=== PATIENT | female | born 1935 | race Caucasian/White ===

== ENCOUNTER 2019-11-07 12:44 | Emergency (ER) | payer MEDICARE, BC ==
[2019-11-07] MEDS ORDERED: EPINEPHrine 1 MG/ML SDV SUBCUT ONE (12:49)
[2019-11-07] MEDS ORDERED: diphenhydrAMINE 50 MG/ML SDV IVPUSH ONE (13:23)
[2019-11-07] MEDS ORDERED: methylPREDNISolone Sodium Succinate 125 MG/2 ML SDV IVPUSH ONE (13:25)
[2019-11-07] MEDS ORDERED: Sodium Chloride 0.9% 1,000 ML IV ONE (13:32)
--- NOTE | 2019-11-07 14:53 | EDM.PDOC ---
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 on arrival she is alert and oriented with stable vitals. - Related Data Allergies Allergy/AdvReac Type Severity Reaction Status Date / Time alendronate sodium Allergy Other Verified 11/07/19 14:34 [From Fosamax] bee venom protein (honey bee) Allergy Anaphylactic Verified 11/07/19 14:34 Shock Sulfa (Sulfonamide Allergy Itching Verified 11/07/19 14:34 Antibiotics) ED ROS GENERAL - Review of Systems Review Of Systems: See Below Constitutional: Reports: No Symptoms HEENT: Reports: Other (erythema and flushing at face , neck and upper extremities. ) Respiratory: Reports: No Symptoms Cardiovascular: Reports: No Symptoms GI/Abdominal: Reports: No Symptoms Musculoskeletal: Reports: No Symptoms Skin: Reports: Rash, Erythema Neurological: Reports: No Symptoms Psychiatric: Reports: No Symptoms ED EXAM, GENERAL - Physical Exam Exam: See Below Exam Limited By: No Limitations General Appearance: Alert, No Apparent Distress, Anxious Eye Exam: Bilateral Eye: Normal Inspection Ears: Normal External Exam, Normal Canal Nose: Normal Inspection, Normal Mucosa Throat/Mouth: Normal Inspection, Normal Lips, Normal Oropharynx. No: Dysphagia Head: Atraumatic, Normocephalic, Other (erythema and flushing at face , neck and upper extremities. ) Neck: Supple, Non-Tender Respiratory/Chest: No Respiratory Distress, Lungs Clear, Normal Breath Sounds, No Accessory Muscle Use GI/Abdominal: Normal Bowel Sounds, Soft, Non-Tender Neurological: Alert, Oriented, CN II-XII Intact Psychiatric: Normal Affect Skin Exam: Other (erythema and flushing at face , neck and upper extremities. ) Course - Vital Signs Text/Narrative:: pt feels better after epi, solumedrol , Benadryl, and fluids, erythema has resolved from face , and there are few spots in arms, repeat exam shows clear lungs and clear oral airway, vitals are stable. pt is stable for discharge home with supportive mng , she may take OTC benadryl 50 mg every 6 hrs if needed. Departure - Departure Time of Disposition: 14:53 Disposition: Home, Self-Care 01 Clinical Impression: Allergic reaction to bee sting - Discharge Information Referrals: PCP,None [Primary Care Provider] -
== END 2019-11-07 15:50 | disposition home or self-care (01) ==
LOC: FB.ED 12:44
DX: T63.441A Toxic effect of venom of bees, accidental (unintentional), initial encounter (principal); Z88.8 Allergy status to other drugs, medicaments and biological substances; Z88.2 Allergy status to sulfonamides
CPT/HCPCS: 96361; 96372; 96374; 96375; 99282-25; J0171; J1200; J2930; J7030

== ENCOUNTER 2019-11-09 09:54 | Emergency (ER) | payer MEDICARE, BC ==
--- NOTE | 2019-11-09 10:37 | EDM.PDOC ---
ED HPI GENERAL MEDICAL PROBLEM - General Chief Complaint: Skin Complaint Stated Complaint: BEE STING Time Seen by Provider: 11/09/19 10:00 Source of Information: Reports: Patient History Limitations: Reports: No Limitations - History of Present Illness INITIAL COMMENTS - FREE TEXT/NARRATIVE: pt c/o swelling and redness at right forearm over the area where she was stung by a bee 2 days ago, tells me it was getting better yesterday but this morning she noted the redness and swelling spreading up toward her elbow , report some pain and itching , denies any fever chills or any other medical concerns. - Related Data Allergies Allergy/AdvReac Type Severity Reaction Status Date / Time alendronate sodium Allergy Other Verified 11/07/19 14:34 [From Fosamax] bee venom protein (honey bee) Allergy Anaphylactic Verified 11/07/19 14:34 Shock Sulfa (Sulfonamide Allergy Itching Verified 11/07/19 14:34 Antibiotics) Home Meds: Home Meds Amitriptyline [Elavil] 25 mg PO BEDTIME 11/09/19 [History] Aspirin [Halfprin] 81 mg PO DAILY 11/09/19 [History] Cholecalciferol (Vitamin D3) [Vitamin D3] 1,000 unit PO DAILY 11/09/19 [History] Digoxin [Digox] 125 mcg PO DAILY 11/09/19 [History] Escitalopram [Lexapro] 20 mg PO DAILY 11/09/19 [History] Furosemide 40 mg PO DAILY 11/09/19 [History] Levothyroxine [Synthroid] 50 mcg PO ACBREAKFAST 11/09/19 [History] Metoprolol Succinate [Toprol Xl] 100 mg PO DAILY 11/09/19 [History] Potassium Chloride [Klor-Con 10] 10 meq PO DAILY 11/09/19 [History] Warfarin [Coumadin] 1.25 mg PO DAILY 11/09/19 [History] Warfarin [Coumadin] 2.5 mg PO DAILY 11/09/19 [History] lisinopriL [Lisinopril] 10 mg PO DAILY 11/09/19 [History] Past Medical History Cardiovascular History: Reports: Afib, Hypertension Social & Family History - Tobacco Use Smoking Status *Q: Never Smoker ED ROS GENERAL - Review of Systems Review Of Systems: See Below Constitutional: Reports: No Symptoms HEENT: Reports: No Symptoms Respiratory: Reports: No Symptoms Cardiovascular: Reports: No Symptoms GI/Abdominal: Reports: No Symptoms : Reports: No Symptoms Musculoskeletal: Reports: No Symptoms ED EXAM, SKIN/RASH Exam: See Below Exam Limited By: No Limitations General Appearance: Alert, No Apparent Distress Respiratory/Chest: No Respiratory Distress, Lungs Clear, Normal Breath Sounds Cardiovascular: Normal Peripheral Pulses, Regular Rate, Rhythm, No Murmur GI/Abdominal: Normal Bowel Sounds, Soft, Non-Tender Extremities: Normal Inspection, Other (there is erythema warmth and swelling over the medial side of right forearm. ) Course - Vital Signs Text/Narrative:: pt has localized allergic reaction to bee sting with propable secondary infection/ cellulitis . Zithromax along with Benadryl were prescribed. Last Recorded V/S: Last Vital Signs Temp 36.6 C 11/09/19 09:54 Pulse 133 H 11/09/19 09:54 Resp 17 11/09/19 09:54 BP 148/91 H 11/09/19 09:54 Pulse Ox 100 11/09/19 09:54 Departure - Departure Time of Disposition: 10:37 Disposition: Home, Self-Care 01 Clinical Impression: Cellulitis - Discharge Information Referrals: Jaiden Ch MD [Primary Care Provider] - Sepsis Event Note (ED) - Evaluation Sepsis Screening Result: No Definite Risk - Focused Exam Vital Signs: Vital Signs Temp Pulse Resp BP Pulse Ox 11/09/19 09:54 36.6 C 133 H 17 148/91 H 100
== END 2019-11-09 11:06 | disposition home or self-care (01) ==
LOC: FB.ED 09:54
DX: L03.113 Cellulitis of right upper limb (principal); I48.91 Unspecified atrial fibrillation; I10 Essential (primary) hypertension; Z91.030 Bee allergy status; Z88.8 Allergy status to other drugs, medicaments and biological substances; Z88.2 Allergy status to sulfonamides; Z79.82 Long term (current) use of aspirin; Z79.01 Long term (current) use of anticoagulants; Z79.899 Other long term (current) drug therapy
CPT/HCPCS: 99283

== ENCOUNTER 2019-11-11 20:17 | Emergency (ER) | payer MEDICARE, BC ==
[2019-11-11] MEDS ORDERED: Sodium Chloride 0.9% 10 ML Syringe FLUSH PRN (20:51)
[2019-11-11] MEDS ORDERED: Sodium Chloride 0.9% 1,000 ML IV SCH (21:00)
[2019-11-11] MEDS ORDERED: Potassium Chloride 20 MEQ Tab.ER PO ONE (21:42)
--- NOTE | 2019-11-11 22:35 | EDM.PDOC ---
ED HPI GENERAL MEDICAL PROBLEM - General Chief Complaint: Allergic Reaction Stated Complaint: Syncope Time Seen by Provider: 11/11/19 20:20 Source of Information: Reports: Patient History Limitations: Reports: No Limitations - History of Present Illness INITIAL COMMENTS - FREE TEXT/NARRATIVE: Patient presented to the ED because of a brief syncopal episode while playing cards and drinking a glass of wine. There is no associated headache,dizziness, palpitations prior to passing out. She was bitten by a bee Sunday and was brought to the ED. En rout to the ED EMS gave her 0.3 mg epi IV and benadryl 25 mg IM. Treatments SORTER LAUNDRY ARTICLES: Reports: EKG - Related Data Allergies Allergy/AdvReac Type Severity Reaction Status Date / Time alendronate sodium Allergy Other Verified 11/07/19 14:34 [From Fosamax] bee venom protein (honey bee) Allergy Anaphylactic Verified 11/07/19 14:34 Shock Sulfa (Sulfonamide Allergy Itching Verified 11/07/19 14:34 Antibiotics) Home Meds: Home Meds Amitriptyline [Elavil] 25 mg PO BEDTIME 11/09/19 [History] Aspirin [Halfprin] 81 mg PO DAILY 11/09/19 [History] Cholecalciferol (Vitamin D3) [Vitamin D3] 1,000 unit PO DAILY 11/09/19 [History] Digoxin [Digox] 125 mcg PO DAILY 11/09/19 [History] Escitalopram [Lexapro] 20 mg PO DAILY 11/09/19 [History] Furosemide 40 mg PO DAILY 11/09/19 [History] Levothyroxine [Synthroid] 50 mcg PO ACBREAKFAST 11/09/19 [History] Metoprolol Succinate [Toprol Xl] 100 mg PO DAILY 11/09/19 [History] Potassium Chloride [Klor-Con 10] 10 meq PO DAILY 11/09/19 [History] Warfarin [Coumadin] 1.25 mg PO DAILY 11/09/19 [History] Warfarin [Coumadin] 2.5 mg PO DAILY 11/09/19 [History] clindamycin HCL [Cleocin] 150 mg PO TID 10 Days cap 11/09/19 [Rx] lisinopriL [Lisinopril] 10 mg PO DAILY 11/09/19 [History] Past Medical History Cardiovascular History: Reports: Afib, Hypertension ED ROS ALLERGIC REACTION - Review of Systems Review Of Systems: See Below Constitutional: Reports: No Symptoms HEENT: Reports: No Symptoms Respiratory: Reports: No Symptoms Cardiovascular: Reports: No Symptoms Endocrine: Reports: No Symptoms GI/Abdominal: Reports: No Symptoms : Reports: No Symptoms Musculoskeletal: Reports: No Symptoms Skin: Reports: No Symptoms Neurological: Reports: No Symptoms Psychiatric: Reports: No Symptoms ED EXAM GENERAL NO PERIP PULSE - Physical Exam Exam: See Below Exam Limited By: No Limitations General Appearance: Alert, No Apparent Distress Eye Exam: Bilateral Eye: PERRL Ears: Normal External Exam, Normal Canal, Hearing Grossly Normal Nose: Normal Inspection, Normal Mucosa, No Blood Throat/Mouth: Normal Inspection, Normal Lips, Normal Teeth, Normal Gums Head: Atraumatic, Normocephalic Neck: Normal Inspection, Supple, Non-Tender, Full Range of Motion Respiratory/Chest: No Respiratory Distress, Lungs Clear, Normal Breath Sounds Cardiovascular: Normal Peripheral Pulses, Bradycardia GI/Abdominal: Normal Bowel Sounds, Soft, Non-Tender, No Organomegaly Back Exam: Normal Inspection, Full Range of Motion Extremities: Normal Inspection, Normal Range of Motion, Non-Tender, No Pedal Edema, Normal Capillary Refill Course - Vital Signs Text/Narrative:: Labs, EKG,Head CT result was discussed with patient NS 1 L bolus K-3.3 Klorcon 40 meq PO x1 Last Recorded V/S: Last Vital Signs Temp 36.6 C 11/11/19 20:17 Pulse 53 L 11/11/19 23:30 Resp 20 11/11/19 23:30 BP 146/82 H 11/11/19 23:30 Pulse Ox 97 11/11/19 23:30 - Orders/Labs/Meds Orders: Active Orders 24 hr Category Date Time Status Chest 1V Frontal [CR] Stat Exams 11/11/19 20:51 Taken Head wo Cont [CT] Stat Exams 11/11/19 20:51 Taken Saline Lock Insert [OM.PC] Routine Oth 11/11/19 20:51 Ordered EKG 12 Lead [EK] Routine Ther 11/11/19 20:51 Ordered Labs: Laboratory Tests 11/11/19 11/11/19 11/11/19 Range/Units 21:00 21:00 21:00 WBC 4.8 (4.5-12.0) X10-3/uL RBC 3.66 (3.23-5.20) x10(6)uL Hgb 11.9 (11.5-15.5) g/dL Hct 35.6 (30.0-51.3) % MCV 97.4 H (80-96) fL MCH 32.6 (27.7-33.6) pg MCHC 33.5 (32.2-35.4) g/dL RDW 12.7 (11.5-15.5) % Plt Count 166 (125-369) X10(3)uL MPV 8.7 (7.4-10.4) fL Neut % (Auto) 57.7 (46-82) % Lymph % (Auto) 21.8 (13-37) % [place] % (Auto) 13.7 H (4-12) % Eos % (Auto) 6 H (1.0-5.0) % Baso % (Auto) 0 (0-2) % Neut # (Auto) 2.8 (1.6-8.3) # Lymph # (Auto) 1.0 (0.6-5.0) # [place] # (Auto) 0.7 (0.0-1.3) # Eos # (Auto) 0.3 (0.0-0.8) # Baso # (Auto) 0.0 (0.0-0.2) # Sodium 139 (135-145) mmol/L Potassium 3.3 L (3.5-5.3) mmol/L Chloride 99 L (100-110) mmol/L Carbon Dioxide 26 (21-32) mmol/L BUN 19 H (7-18) mg/dL Creatinine 1.2 H (0.55-1.02) mg/dL Est Cr Clr Drug Dosing TNP Estimated GFR (MDRD) 43 L (>60) BUN/Creatinine Ratio 15.8 (9-20) Glucose 66 L (80-116) mg/dL Calcium 9.0 (8.6-10.2) mg/dL Total Bilirubin 0.9 (0.1-1.3) mg/dL AST 25 (5-25) IU/L ALT 19 (12-36) U/L Alkaline Phosphatase 73 (56-112) IU/L Troponin I 11.8 (4.0-60.3) pg/mL Total Protein 7.4 (6.0-8.0) g/dL Albumin 3.7 (3.2-4.6) g/dL Globulin 3.7 g/dL Albumin/Globulin Ratio 1.0 Meds: Medications Discontinued Medications Generic Name Dose Route Start Last Admin Trade Name Freq PRN Reason Stop Dose Admin Diphenhydramine HCl 50 mg 11/12/19 00:30 Benadryl PO Q4H PRN Itching Sodium Chloride 1,000 mls @ 999 mls/hr 11/11/19 21:00 11/11/19 21:20 Normal Saline IV 999 mls/hr ASDIRECTED HILARIO Administration Potassium Chloride 40 meq 11/11/19 21:42 11/11/19 21:52 Klor-Con M20 PO 11/11/19 21:43 40 meq ONETIME ONE Administration Sodium Chloride 10 ml 11/11/19 20:51 11/11/19 21:23 Saline Flush FLUSH 10 ml ASDIRECTED PRN Administration Keep Vein Open Departure - Departure Time of Disposition: 23:00 Disposition: Home, Self-Care 01 Condition: Good Clinical Impression: Syncope, Dehydration, Hypokalemia - Discharge Information Instructions: Hypokalemia, Dehydration, Adult, [id number], Syncope, [id number] Referrals: Jaiden Ch MD [Primary Care Provider] - Forms: ED Department Discharge Additional Instructions: Please read discharge instructions on dehydration and syncope Increase oral fluids at least 2-3 liters a day Follow up as needed Sepsis Event Note (ED) - Evaluation Sepsis Screening Result: No Definite Risk - Focused Exam Vital Signs: Vital Signs Pulse Resp BP Pulse Ox 11/11/19 23:30 53 L 20 146/82 H 97 - My Orders Last 24 Hours: My Active Orders 11/11/19 20:51 Chest 1V Frontal [CR] Stat Head wo Cont [CT] Stat Saline Lock Insert [OM.PC] Routine EKG 12 Lead [EK] Routine - Assessment/Plan Last 24 Hours: My Active Orders 11/11/19 20:51 Chest 1V Frontal [CR] Stat Head wo Cont [CT] Stat Saline Lock Insert [OM.PC] Routine EKG 12 Lead [EK] Routine
[2019-11-12] MEDS ORDERED: diphenhydrAMINE 50 MG Cap PO PRN (00:30)
== END 2019-11-11 23:30 | disposition home or self-care (01) ==
LOC: FB.ED 20:17
DX: E86.0 Dehydration (principal); E87.6 Hypokalemia; I48.91 Unspecified atrial fibrillation; I10 Essential (primary) hypertension; Z88.2 Allergy status to sulfonamides; Z88.8 Allergy status to other drugs, medicaments and biological substances; Z91.030 Bee allergy status; Z79.82 Long term (current) use of aspirin; Z79.899 Other long term (current) drug therapy
CPT/HCPCS: 36415; 70450; 71045; 80053; 84484; 85025; 93005; 96360; 99285-25; A9270-GY; J7030

== ENCOUNTER 2020-12-29 08:03 | Inpatient (IN) | payer MEDICARE, BC ==
[2020-12-29] MEDS ORDERED: Atropine/Diphenoxylate 0.025-2.5 MG Tab PO PRN (14:40)
[2020-12-29] MEDS ORDERED: Acetaminophen 500 MG Tab PO PRN (14:40)
[2020-12-29] MEDS ORDERED: MENTHOL PO PRN (14:40)
[2020-12-29] MEDS ORDERED: [UNRECOGNIZED DRUG - OTHER] PO PRN (14:40)
[2020-12-29] MEDS ORDERED: BENZOCAINE PO PRN (14:40)
--- NOTE | 2020-12-29 15:17 | PCM.HP.2 ---
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 Had elevated bilirubin, 1.9 which is not new, suspected Gilbert's. Also had thrombocytopenia with peripheral smear pending at time of discharge from [facility]. She was also having hypoglycemic events in [place], no evidence of Diabetes. Endocrinology saw today and felt not Diabetes but will follow up with her as outpatient. 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 Family also reported she doesn't eat regularly at home, wanted to set up Meals on Wheels for her. - Related Data Allergies/Adverse Reactions: Allergies Allergy/AdvReac Type Severity Reaction Status Date / Time alendronate sodium Allergy Other Verified 11/07/19 14:34 [From Fosamax] bee venom protein (honey bee) Allergy Anaphylactic Verified 11/07/19 14:34 Shock Sulfa (Sulfonamide Allergy Itching Verified 11/07/19 14:34 Antibiotics) Home Medications: Home Meds Amitriptyline [Elavil] 25 mg PO BEDTIME 11/09/19 [History] Cholecalciferol (Vitamin D3) [Vitamin D3] 1,000 unit PO DAILY 11/09/19 [History] Digoxin [Digox] 125 mcg PO DAILY 11/09/19 [History] Escitalopram [Lexapro] 20 mg PO DAILY 11/09/19 [History] Levothyroxine [Synthroid] 50 mcg PO ACBREAKFAST 11/09/19 [History] Metoprolol Succinate [Toprol Xl] 100 mg PO DAILY 11/09/19 [History] Acetaminophen [Tylenol Extra Strength] 1,000 mg PO TID PRN 12/29/20 [History] Apixaban [Eliquis] 2.5 mg PO BID 12/29/20 [History] Benzocaine/Menthol [Cepacol Sore Throat Lozenge] 1 lozenge PO Q4H PRN 12/29/20 [History] Calcitonin,[place],Synthetic [Calcitonin-[place]] 1 spray YARI DAILY 12/29/20 [History] Calcium Citrate/Vitamin D3 [Calcium Cit 315 mg-D3 250 Unit] 1 tab PO BID 12/29/20 [History] Diphenoxylate HCl/Atropine [Lomotil] 1 tab PO BID PRN 12/29/20 [History] EPINEPHrine [Epipen] 0.3 mg IM ASDIRECTED PRN 12/29/20 [History] Loperamide [Imodium] 2 mg PO QID PRN 12/29/20 [History] Magnesium Oxide 250 mg PO DAILY 12/29/20 [History] atorvaSTATin [Lipitor] 10 mg PO BEDTIME 12/29/20 [History] Past Medical History Cardiovascular History: Reports: Afib, Hypertension Gastrointestinal History: Reports: Chronic Diarrhea Neurological History: Reports: CVA Other Neuro History: 12/26/2020 Endocrine/Metabolic History: Reports: Other (See Below) Other Endocrine/Metabolic History: hypoglycemiain hosp - Past Surgical History GI Surgical History: Reports: Other (See Below) Other GI Surgeries/Procedures: part of intestine missing Social & Family History - Tobacco Use Tobacco Use Status *Q: Never Tobacco User Second Hand Smoke Exposure: No - Caffeine Use Caffeine Use: Reports: Coffee, Tea - Recreational Drug Use Recreational Drug Use: No H&P Review of Systems - Review of Systems: Review Of Systems: Comprehensive ROS is negative, except as noted in HPI. Exam - Exam Exam: See Below - Vital Signs Vital Signs: Last Vital Signs Temp 96.9 F 12/29/20 14:39 Pulse 69 12/29/20 14:39 Resp 18 12/29/20 14:39 BP 143/83 H 12/29/20 14:39 Pulse Ox 95 12/29/20 14:39 Weight: 124 lb - Exam General: Alert, Oriented, Cooperative HEENT: PERRLA, Conjunctiva Clear, EOMI, Hearing Intact, Mucosa Moist & [place] Neck: Trachea Midline Lungs: Clear to Auscultation, Normal Respiratory Effort Cardiovascular: Regular Rate, Irregular Rhythm, Systolic Murmur GI/Abdominal Exam: Normal Bowel Sounds, Soft, Non-Tender, No Distention (Female) Exam: Deferred Rectal (Female) Exam: Deferred Extremities: No Pedal Edema, Normal Capillary Refill Peripheral Pulses: 2+: Radial (L), Radial (R), Posterior Tibial (L), Posterior Tibial (R), Dorsalis Pedis (L), Dorsalis Pedis (R) Skin: Warm, Dry, Intact Neurological: Cranial Nerves Intact, Normal Speech, Normal Tone, Sensation Intact Neuro Extensive - Motor, Sensory, Reflexes: Motor/Sensory Deficits (LUE/LLE 4/5, manager beauty 4/5) Sepsis Event Note - Evaluation Sepsis Screening Result: No Definite Risk - Focused Exam Vital Signs: Vital Signs Temp Pulse Resp BP Pulse Ox Pulse Ox 12/29/20 14:39 96.9 F 69 18 143/83 H 95 95 *Q Meaningful Use (ADM) - VTE *Q VTE Mechanical Contraindications *Q: At Risk for Falls - VTE Risk Assess *Q Each Risk Factor Represents 1 Point: Congestive heart failure (CHF) Total Score 1 Point Risk Factors: 1 Each Risk Factor Represents 2 Points: None Total Score 2 Point Risk Factors: 0 Each Risk Factor Represents 3 Points: Age 75 Years or Greater Total Score 3 Point Risk Factors: 3 Each Risk Factor Represents 5 Points: Stroke, Less than 1 Month Total Score 5 Point Risk Factors: 5 Venous Thromboembolism Risk Factor Score *Q: 9 - Problem List (1) CVA (cerebral vascular accident) SNOMED Code(s): 960724341 ICD Code: I63.9 - CEREBRAL INFARCTION, UNSPECIFIED Status: Acute Current Visit: Yes Problem Details: Temporal lobe Qualifiers: CVA mechanism: thrombosis Precerebral and cerebral artery: middle cerebral artery Laterality of affected vessel: unspecified Qualified Code(s): I63.319 - Cerebral infarction due to thrombosis of unspecified middle cerebral artery (2) Atrial fibrillation SNOMED Code(s): 34856984 ICD Code: I48.91 - UNSPECIFIED ATRIAL FIBRILLATION Status: Chronic Current Visit: Yes (3) CHF (congestive heart failure) SNOMED Code(s): 54936019 ICD Code: I50.9 - HEART FAILURE, UNSPECIFIED Status: Chronic Current Visit: Yes (4) Thrombocytopenia SNOMED Code(s): 176073191 ICD Code: D69.6 - THROMBOCYTOPENIA, UNSPECIFIED Status: Chronic Current Visit: Yes (5) Total bilirubin, elevated SNOMED Code(s): 725078353692837 ICD Code: R17 - UNSPECIFIED JAUNDICE Status: Chronic Current Visit: Yes (6) Hypoglycemia SNOMED Code(s): 229053456 ICD Code: E16.2 - HYPOGLYCEMIA, UNSPECIFIED Status: Chronic Current Visit: Yes Problem List Initiated/Reviewed/Updated: Yes Orders Last 24hrs: Active Orders 24 hr Category Date Time Status Patient Status [ADT] Routine ADT 12/29/20 14:39 Active Height and Weight [RC] WEEKLY Care 12/29/20 14:39 Active Oxygen Therapy [RC] 08 Care 12/29/20 14:39 Active Up With Assistance [RC] ASDIRECTED Care 12/29/20 14:38 Active Up to Chair [RC] ASDIRECTED Care 12/29/20 14:38 Active Vital Signs [RC] 08 Care 12/29/20 14:39 Active OT Evaluation and Treatment [CONS] Routine Cons 12/29/20 14:38 Active PT Evaluation and Treatment [CONS] Routine Cons 12/29/20 14:38 Active Regular Diet [DIET] Diet 12/29/20 Dinner Active Acetaminophen [Tylenol Extra Strength] Med 12/29/20 14:40 Ordered 1,000 mg PO TID PRN Amitriptyline [Elavil] Med 12/29/20 21:00 Ordered 25 mg PO BEDTIME Apixaban [Eliquis] Med 12/29/20 21:00 Ordered 2.5 mg PO BID Atropine/Diphenoxylate [Lomotil 0.025-2.5 MG] Med 12/29/20 14:40 Ordered 1 tab PO BID PRN Benzocaine/Menthol [Cepacol Sore Throat Lozenge] Med 12/29/20 14:40 Ordered 1 lozenge PO Q4H PRN Calcitonin ([place]) [Miacalcin] Med 12/30/20 09:00 Ordered DOSE units .XX DAILY Calcium Citrate/Vitamin D3 [Calcium Cit 315 mg-D3 250 Med 12/29/20 21:00 Ordered Unit] 1 tab PO BID Cholecalciferol (Vitamin D3) [Vitamin D3] Med 12/30/20 09:00 Ordered 1,000 unit PO DAILY Digoxin [Lanoxin] Med 12/30/20 09:00 Ordered 125 mcg PO DAILY Escitalopram [Lexapro] Med 12/30/20 09:00 Ordered 20 mg PO DAILY Levothyroxine [Synthroid] Med 12/30/20 07:30 Ordered 50 mcg PO ACBREAKFAST Loperamide [Imodium] Med 12/29/20 14:40 Ordered 2 mg PO QID PRN Magnesium Oxide [Magnesium Oxide] Med 12/30/20 09:00 Ordered 250 mg PO DAILY Metoprolol Succinate [Toprol XL] Med 12/30/20 09:00 Ordered 100 mg PO DAILY atorvaSTATin [Lipitor] Med 12/29/20 21:00 Ordered 10 mg PO BEDTIME Resuscitation Status Routine Resus Stat 12/29/20 14:38 Ordered Medication Orders Acetaminophen (Acetaminophen 500 Mg Tab) 1,000 mg PO TID PRN PRN Reason: Pain Amitriptyline HCl (Amitriptyline 25 Mg Tab) 25 mg PO BEDTIME [facility] Apixaban (Apixaban 2.5 Mg Tab) 2.5 mg PO BID [facility] Atorvastatin Calcium (Atorvastatin 10 Mg Tab) 10 mg PO BEDTIME [facility] Calcitonin [place] (Calcitonin ([place]) 200 Units/Ml 2 Ml Mdv) units .XX DAILY [facility] Digoxin (Digoxin 125 Mcg Tab) 125 mcg PO DAILY [facility] Diphenoxylate HCl/Atropine (Atropine/Diphenoxylate 0.025-2.5 Mg Tab) 1 tab PO BID PRN PRN Reason: Diarrhea Escitalopram Oxalate (Escitalopram 20 Mg Tab) 20 mg PO DAILY [facility] Levothyroxine Sodium (Levothyroxine 50 Mcg Tab) 50 mcg PO ACBREAKFAST [facility] Loperamide HCl (Loperamide 2 Mg Cap) 2 mg PO QID PRN PRN Reason: Diarrhea Metoprolol Succinate (Metoprolol Succinate 100 Mg Tab.Er) 100 mg PO DAILY [facility] Non-Formulary Medication (Benzocaine/Menthol [Cepacol Sore Throat Lozenge]) 1 lozenge PO Q4H PRN PRN Reason: Sore Throat Non-Formulary Medication (Calcium Citrate/Vitamin D3 [Calcium Cit 315 Mg-D3 250 Unit]) 1 tab PO BID [facility] Non-Formulary Medication (Cholecalciferol (Vitamin D3) [Vitamin D3]) 1,000 unit PO DAILY [facility] Non-Formulary Medication (Magnesium Oxide [Magnesium Oxide]) 250 mg PO DAILY [facility] Assessment/Plan Comment:: 1. Admit for swing bed placement for CVA with right side weakness. 2. CVA: PT/OT evaluate & treat. Eliquis bid, low dose statin. Had more left side weakness today than right that was reported from [facility]. 3. Atrial fibrillation: on Eliquis. 4. Diet: Regular. 5. Activity: up with assistance & to chair. 6. CODE STATUS: DNR/DNI. 7. Disposition: anticipate discharge once meets therapy goals. Family questions whether home with services or [facility]. - Mortality Measure Prognosis:: Poor
[2020-12-29] MEDS: Amitriptyline 25 MG Tab PO SCH (20:30)
[2020-12-29] MEDS: Calcium Carbonate 500 MG Tablet PO SCH (20:31)
[2020-12-29] MEDS: atorvaSTATin 10 MG Tab PO SCH (20:31)
[2020-12-29] MEDS: Loperamide 2 MG Cap PO PRN (20:36)
[2020-12-29] MEDS ORDERED: Apixaban 2.5 MG Tab PO SCH (21:00)
[2020-12-30] MEDS: Levothyroxine 50 MCG Tab PO SCH (05:47)
[2020-12-30] MEDS: Calcitonin (Salmon) Nasal Spray 3.7 ML Bottle NAS SCH (08:31)
[2020-12-30] MEDS: Magnesium Oxide 400 MG Tab PO SCH (08:35)
[2020-12-30] MEDS: Cholecalciferol (Vitamin D3) 25 MCG Tab PO SCH (08:35)
[2020-12-30] MEDS: Metoprolol Succinate 100 MG Tab.ER PO SCH (08:35)
[2020-12-30] MEDS: Digoxin 125 MCG Tab PO SCH (08:36)
[2020-12-30] MEDS: Calcium Carbonate 500 MG Tablet PO SCH ×2 (08:36→21:11)
[2020-12-30] MEDS: Escitalopram 20 MG Tab PO SCH (08:36)
[2020-12-30] MEDS: Apixaban 5 MG Tab PO SCH ×2 (08:37→21:11)
[2020-12-30] MEDS: Loperamide 2 MG Cap PO PRN (08:42)
[2020-12-30] MEDS: atorvaSTATin 10 MG Tab PO SCH (21:11)
[2020-12-30] MEDS: Amitriptyline 25 MG Tab PO SCH (21:11)
[2020-12-31] MEDS: Levothyroxine 50 MCG Tab PO SCH (06:00)
[2020-12-31] MEDS: Calcium Carbonate 500 MG Tablet PO SCH (08:12)
[2020-12-31] MEDS: Cholecalciferol (Vitamin D3) 25 MCG Tab PO SCH (08:12)
[2020-12-31] MEDS: Escitalopram 20 MG Tab PO SCH (08:13)
[2020-12-31] MEDS: Apixaban 5 MG Tab PO SCH (08:13)
[2020-12-31] MEDS: Magnesium Oxide 400 MG Tab PO SCH (08:13)
[2020-12-31] MEDS: Digoxin 125 MCG Tab PO SCH (08:14)
[2020-12-31] MEDS: Metoprolol Succinate 100 MG Tab.ER PO SCH (08:14)
[2020-12-31] MEDS: Calcitonin (Salmon) Nasal Spray 3.7 ML Bottle NAS SCH (08:15)
[2020-12-31] MEDS: Loperamide 2 MG Cap PO PRN (08:21)
--- NOTE | 2020-12-31 17:32 | PCM.DCSUM1 ---
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 Had elevated bilirubin, 1.9 which is not new, suspected Gilbert's. Also had thrombocytopenia with peripheral smear pending at time of discharge from [facility]. She was also having hypoglycemic events in [place], no evidence of Diabetes. Endocrinology saw today and felt not Diabetes but will follow up with her as outpatient. 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 Family also reported she doesn't eat regularly at home, wanted to set up Meals on Wheels for her. Diagnosis: Stroke: Yes Modified Larissa Scale: No Signif.Disability Despite Sympt.Able to Carry Out Usual Act./Duties Modified Larissa Scale Score: 1 - Discharge Data Discharge Date: 12/31/20 Discharge Disposition: Home, Self-Care 01 Condition: Good - Referral to Home Health Primary Care Physician: Jaiden Ch MD - Discharge Diagnosis/Problem(s) (1) CVA (cerebral vascular accident) SNOMED Code(s): 916903068 ICD Code: I63.9 - CEREBRAL INFARCTION, UNSPECIFIED Status: Acute Problem Details: Left Temporal lobe, right side weakness resolved. Qualifiers: CVA mechanism: thrombosis Precerebral and cerebral artery: middle cerebral artery (2) Atrial fibrillation SNOMED Code(s): 65055492 ICD Code: I48.91 - UNSPECIFIED ATRIAL FIBRILLATION Status: Chronic (3) CHF (congestive heart failure) SNOMED Code(s): 45118150 ICD Code: I50.9 - HEART FAILURE, UNSPECIFIED Status: Chronic (4) Thrombocytopenia SNOMED Code(s): 475117473 ICD Code: D69.6 - THROMBOCYTOPENIA, UNSPECIFIED Status: Chronic (5) Total bilirubin, elevated SNOMED Code(s): 456178845884261 ICD Code: R17 - UNSPECIFIED JAUNDICE Status: Chronic (6) Hypoglycemia SNOMED Code(s): 532673288 ICD Code: E16.2 - HYPOGLYCEMIA, UNSPECIFIED Status: Chronic Problem Details: 66 postprandial, 70, 76 before meals. Encouraged to eat small meals more frequently. - Patient Summary/Data Consults: Consultations 12/29/20 14:38 OT Evaluation and Treatment [CONS] Routine Please Evaluate and Treat. OT Reason for Consult: ADL's This query below is only for informational purposes and is not editable. PT Evaluation and Treatment [CONS] Routine Please Evaluate and Treat. PT Reason for Consult: Strengthening This query below is only for informational purposes and is not editable. Hospital Course: Met therapy goals, does not need home health as she is not home bound. She went out on yesterday to look at [facility] assisted living, family didn't feel she was ready for that yet. She had low blood sugar 2 hours after meals yesterday 66, and today 62; before meals 70, 76. Advised to eat 5-6 small meals with protein at each meal to help prevent postprandial hypoglycemia. Family was getting glucometer so she could check her sugars at home. Endocrinology had seen day of discharge from [place] and advised against workup unless she was having sugars below 55. He gave family his card if they wanted to set up appt. She has been independent in her room without any difficulty or falls. Right side weakness has resolved. - Patient Instructions Diet: Usual Diet as Tolerated Activity: As Tolerated Driving: Do Not Drive Showering/Bathing: May Shower Other/Special Instructions: Follow up with Dr Ch as previously scheduled on Sunday. - Discharge Plan *PRESCRIPTION DRUG MONITORING PROGRAM REVIEWED*: Not Applicable *COPY OF PRESCRIPTION DRUG MONITORING REPORT IN PATIENT JEREMIE: Not Applicable Prescriptions/Med Rec: Apixaban [Eliquis] 2.5 mg PO BID #30 tab Home Medications: Home Meds Amitriptyline [Elavil] 25 mg PO BEDTIME 11/09/19 [History] Cholecalciferol (Vitamin D3) [Vitamin D3] 1,000 unit PO DAILY 11/09/19 [History] Digoxin [Digox] 125 mcg PO DAILY 11/09/19 [History] Escitalopram [Lexapro] 20 mg PO DAILY 11/09/19 [History] Levothyroxine [Synthroid] 50 mcg PO ACBREAKFAST 11/09/19 [History] Metoprolol Succinate [Toprol Xl] 100 mg PO DAILY 11/09/19 [History] Acetaminophen [Tylenol Extra Strength] 1,000 mg PO TID PRN 12/29/20 [History] Benzocaine/Menthol [Cepacol Sore Throat Lozenge] 1 lozenge PO Q4H PRN 12/29/20 [History] Calcitonin,[place],Synthetic [Calcitonin-[place]] 1 spray YARI DAILY 12/29/20 [History] Calcium Citrate/Vitamin D3 [Calcium Cit 315 mg-D3 250 Unit] 1 tab PO BID 12/29/20 [History] Diphenoxylate HCl/Atropine [Lomotil] 1 tab PO BID PRN 12/29/20 [History] EPINEPHrine [Epipen] 0.3 mg IM ASDIRECTED PRN 12/29/20 [History] Loperamide [Imodium] 2 mg PO QID PRN 12/29/20 [History] Magnesium Oxide 250 mg PO DAILY 12/29/20 [History] atorvaSTATin [Lipitor] 10 mg PO BEDTIME 12/29/20 [History] Apixaban [Eliquis] 2.5 mg PO BID #30 tab 12/31/20 [Rx] Patient Handouts: Apixaban oral tablets Referrals: Jaiden Ch MD [Primary Care Provider] - - Discharge Summary/Plan Comment DC Time >30 min.: No Total # of Minutes for Discharge Time: 12 min - General Info Date of Service: 12/31/20 Subjective Update: No neuro deficits today. She has been doing well with therapy, met her goals, hill s been independent in the room. Had some postprandial low blood sugars. Went on day pass yesterday to [facility]. Family felt she was not ready for that yet, she's too independent. - Patient Data Vitals - Most Recent: Last Vital Signs Temp 97.7 F 12/31/20 08:00 Pulse 62 12/31/20 08:14 Resp 18 12/31/20 08:00 BP 151/90 H 12/31/20 08:14 Pulse Ox 98 12/31/20 08:00 Weight - Most Recent: 124 lb Lab Results - Last 24 hrs: Laboratory Results - last 24 hr 12/30/20 12/30/20 12/31/20 Range/Units 17:40 20:36 09:40 POC Glucose 76 L 70 L 62 L (80-116) mg/dL Med Orders - Current: Current Medications Discontinued Medications Acetaminophen (Acetaminophen 500 Mg Tab) 1,000 mg PO TID PRN PRN Reason: Pain Amitriptyline HCl (Amitriptyline 25 Mg Tab) 25 mg PO BEDTIME HILARIO Last Admin: 12/30/20 21:11 Dose: 25 mg Documented by: Apixaban (Apixaban 2.5 Mg Tab) 2.5 mg PO BID [facility] Last Admin: 12/29/20 20:30 Dose: 2.5 mg Documented by: Apixaban (Apixaban 5 Mg Tab) 2.5 mg PO BID [facility] Last Admin: 12/31/20 08:13 Dose: 2.5 mg Documented by: Atorvastatin Calcium (Atorvastatin 10 Mg Tab) 10 mg PO BEDTIME [facility] Last Admin: 12/30/20 21:11 Dose: 10 mg Documented by: Calcitonin [place] (Calcitonin ([place]) Nasal [place] 3.7 Ml Bottle) 0 ml YARI DAILY [facility] Last Admin: 12/31/20 08:15 Dose: 1 spray Documented by: Calcium Carbonate/Glycine (Calcium Carbonate 500 Mg Tablet) 500 mg PO BID [facility] Last Admin: 12/31/20 08:12 Dose: 500 mg Documented by: Cholecalciferol (Cholecalciferol (Vitamin D3) 25 Mcg Tab) 25 mcg PO DAILY [facility] Last Admin: 12/31/20 08:12 Dose: 25 mcg Documented by: Digoxin (Digoxin 125 Mcg Tab) 125 mcg PO DAILY [facility] Last Admin: 12/31/20 08:14 Dose: 125 mcg Documented by: Diphenoxylate HCl/Atropine (Atropine/Diphenoxylate 0.025-2.5 Mg Tab) 1 tab PO BID PRN PRN Reason: Diarrhea Escitalopram Oxalate (Escitalopram 20 Mg Tab) 20 mg PO DAILY [facility] Last Admin: 12/31/20 08:13 Dose: 20 mg Documented by: Levothyroxine Sodium (Levothyroxine 50 Mcg Tab) 50 mcg PO DAILY@0600 [facility] Last Admin: 12/31/20 06:00 Dose: 50 mcg Documented by: Loperamide HCl (Loperamide 2 Mg Cap) 2 mg PO QID PRN PRN Reason: Diarrhea Last Admin: 12/31/20 08:21 Dose: 2 mg Documented by: Magnesium Oxide (Magnesium Oxide 400 Mg Tab) 200 mg PO DAILY [facility] Last Admin: 12/31/20 08:13 Dose: 200 mg Documented by: Metoprolol Succinate (Metoprolol Succinate 100 Mg Tab.Er) 100 mg PO DAILY [facility] Last Admin: 12/31/20 08:14 Dose: 100 mg Documented by: - Exam General: Reports: Alert, Oriented, Cooperative Lungs: Reports: Clear to Auscultation, Normal Respiratory Effort Cardiovascular: Reports: Regular Rate, Regular Rhythm Skin: Reports: Warm, Dry, Intact Neurological: Reports: No New Focal Deficit, Normal Gait, Normal Speech, Normal Tone, Strength Equal Bilateral, Sensation Intact *Q Meaningful Use (DIS) - VTE *Q VTE Mechanical Contraindications *Q: At Risk for Falls
== END 2020-12-31 10:20 | disposition home or self-care (01) | DRG 57 ==
LOC: FB.MS 13:06
PROVIDERS: ADMIT Family Medicine; ATTEND Family Medicine
DX: I69.351 Hemiplegia and hemiparesis following cerebral infarction affecting right dominant side (principal); I48.20 Chronic atrial fibrillation, unspecified; R17 Unspecified jaundice; D69.6 Thrombocytopenia, unspecified; I50.9 Heart failure, unspecified; E16.2 Hypoglycemia, unspecified; K52.9 Noninfective gastroenteritis and colitis, unspecified; Z66 Do not resuscitate; E03.9 Hypothyroidism, unspecified; I10 Essential (primary) hypertension; F41.9 Anxiety disorder, unspecified; F32.9 Major depressive disorder, single episode, unspecified; G47.33 Obstructive sleep apnea (adult) (pediatric); Z91.030 Bee allergy status; Z88.8 Allergy status to other drugs, medicaments and biological substances; Z88.2 Allergy status to sulfonamides; Z79.890 Hormone replacement therapy; Z79.899 Other long term (current) drug therapy
CPT/HCPCS: 82947; 97161-GP; 97165-GO; 97535-GO; A9270-GY

== ENCOUNTER 2021-06-23 19:53 | Emergency (ER) | payer MEDICARE, BC ==
[2021-06-23] MEDS ORDERED: 50% Dextrose in Water 50 ML Syringe IVPUSH ONE (20:12)
[2021-06-23] MEDS ORDERED: Sodium Chloride 0.9% 1,000 ML IV SCH (20:45)
[2021-06-23] MEDS ORDERED: Atropine 0.4 MG/ML SDV IVPUSH ONE (20:45)
== END 2021-06-23 22:30 | disposition home or self-care (01) ==
LOC: FB.ED 19:53
DX: I48.20 Chronic atrial fibrillation, unspecified (principal); E86.0 Dehydration; E16.2 Hypoglycemia, unspecified; I10 Essential (primary) hypertension; Z20.822 Contact with and (suspected) exposure to COVID-19; Z86.73 Personal history of transient ischemic attack (TIA), and cerebral infarction without residual deficits; Z79.01 Long term (current) use of anticoagulants; Z91.030 Bee allergy status; Z88.2 Allergy status to sulfonamides; Z88.8 Allergy status to other drugs, medicaments and biological substances
CPT/HCPCS: 36415; 71045; 80053; 82947; 84484; 85025; 85610; 85730; 86140; 96361; 96374; 96375; 99285; J0461; J7030; U0002; 93010; 99282

== ENCOUNTER 2022-04-17 18:23 | Emergency (ER) | payer MEDICARE, BC ==
[2022-04-17 19:03] LABS: ESTIMATED GFR 61 mL/min (>60)
[2022-04-17] MEDS ORDERED: Iopamidol 755 Mg/ML 100 ML Bottle IV ONE (19:44)
[2022-04-17] MEDS ORDERED: Ondansetron 4 MG Tab.DIS PO ONE (23:35)
== END 2022-04-18 00:40 ==
LOC: FB.ED 18:23
DX: R55 Syncope and collapse (principal); J81.1 Chronic pulmonary edema; R61 Generalized hyperhidrosis; R79.89 Other specified abnormal findings of blood chemistry; I11.0 Hypertensive heart disease with heart failure; I50.9 Heart failure, unspecified; I48.91 Unspecified atrial fibrillation; Z20.822 Contact with and (suspected) exposure to COVID-19; Z86.73 Personal history of transient ischemic attack (TIA), and cerebral infarction without residual deficits; Z91.030 Bee allergy status; Z88.2 Allergy status to sulfonamides; Z88.8 Allergy status to other drugs, medicaments and biological substances; Z79.899 Other long term (current) drug therapy
CPT/HCPCS: 36415; 70450; 71045; 71275; 80053; 81001; 83880; 84484; 85025; 85379; 86140; 93005; 93010; 99285; Q9967; U0002